=== PATIENT | male | born 1995 | race Caucasian/White ===

== ENCOUNTER 2021-11-01 13:13 | Inpatient (IN) | payer OTHER ==
[2021-11-01 13:55] VITALS: BMI 22.2
[2021-11-01] MEDS ORDERED: NICOTINE POLACRILEX 4 MG GUM BUC PRN (15:00)
[2021-11-01] MEDS ORDERED: BUPRENORPHINE HCL 150 MCG, BUPRENORPHINE HCL 75 MCG BC ONE (15:00)
[2021-11-01] MEDS ORDERED: ACETAMINOPHEN 325 MG TABLET (FP) PO PRN ×2 (15:00)
[2021-11-01] MEDS ORDERED: DICYCLOMINE HCL 10 MG CAPSULE PO PRN (15:00)
[2021-11-01] MEDS ORDERED: BISMUTH SUBSALICYLATE 524 MG/30 ML PO PRN (15:00)
[2021-11-01] MEDS ORDERED: BENZOCAINE/MENTHOL (CHLORASEPTIC ) LOZENGE MM PRN (15:00)
[2021-11-01] MEDS ORDERED: IBUPROFEN 400 MG TABLET (FP) PO PRN (15:00)
[2021-11-01] MEDS ORDERED: LOPERAMIDE HCL 2 MG CAPSULE PO PRN (15:00)
[2021-11-01] MEDS ORDERED: MAG HYDROX/AL HYDROX/SIMETH 30 ML UNIT-DOSE CUP PO PRN (15:00)
[2021-11-01] MEDS ORDERED: cloNIDine HCL 0.1 MG TABLET PO ONE (15:00)
[2021-11-01] MEDS ORDERED: ONDANSETRON *ODT* 4 MG TABLET SL PRN (15:00)
[2021-11-01] MEDS ORDERED: BUPRENORPHINE HCL 150 MCG, BUPRENORPHINE HCL 75 MCG BC PRN (15:00)
[2021-11-01] MEDS ORDERED: MAGNESIUM CITRATE 300 ML BOTTLE PO PRN (15:00)
[2021-11-01] MEDS ORDERED: IBUPROFEN 600 MG TABLET (FP) PO PRN (15:00)
[2021-11-01] MEDS ORDERED: MAGNESIUM HYDROX 2400MG/30ML ORAL SUSPENSION 30 ML CUP PO PRN (15:00)
[2021-11-01] MEDS ORDERED: BUPRENORPHINE HCL 150 MCG FILM BC ONE (15:35)
[2021-11-01] MEDS ORDERED: BUPRENORPHINE HCL 75 MCG FILM BC ONE (15:35)
[2021-11-01] MEDS: diazePAM 5 MG TABLET PO PRN (16:52)
[2021-11-01] MEDS: hydrOXYzine PAMOATE 25 MG CAPSULE (FP) PO PRN (16:53)
[2021-11-01] MEDS: NICOTINE 21 MG/24 HOURS TOPICAL PATCH TD SCH (16:56)
[2021-11-01] MEDS: LIDOCAINE 5% TOPICAL PATCH TP SCH (16:56)
[2021-11-01] MEDS: PRENATAL VITAMINS W/ FOLIC ACID TABLET (FP) PO SCH (16:57)
[2021-11-01] MEDS: BACITRACIN 15 GM TUBE TOPICAL OINTMENT TP SCH (18:22)
[2021-11-01] MEDS ORDERED: MELATONIN 5 MG TABLETS PO SCH (22:00)
[2021-11-01] MEDS: LIDOCAINE PATCH REMOVAL MC SCH (23:06)
[2021-11-01] MEDS: THIAMINE HCL 100 MG TABLET (FP) PO SCH (23:07)
[2021-11-02] MEDS ORDERED: BUPRENORPHINE HCL 150 MCG, BUPRENORPHINE HCL 75 MCG BC PRN
[2021-11-02] MEDS: BUPRENORPHINE HCL 150 MCG, BUPRENORPHINE HCL 75 MCG BC SCH ×2 (06:57→17:23)
[2021-11-02] MEDS: NICOTINE 10 MG CARTRIDGE (INHALER) IH PRN ×3 (07:50→17:40)
[2021-11-02] MEDS: diazePAM 5 MG TABLET PO PRN ×2 (10:07→17:37)
[2021-11-02] MEDS: PRENATAL VITAMINS W/ FOLIC ACID TABLET (FP) PO SCH (10:08)
[2021-11-02] MEDS: LIDOCAINE 5% TOPICAL PATCH TP SCH (10:08)
[2021-11-02] MEDS: BACITRACIN 15 GM TUBE TOPICAL OINTMENT TP SCH (10:08)
[2021-11-02] MEDS: NICOTINE 21 MG/24 HOURS TOPICAL PATCH TD SCH (10:08)
[2021-11-02] MEDS: LIDOCAINE PATCH REMOVAL MC SCH (22:58)
[2021-11-02] MEDS: MIRTAZAPINE 15 MG TABLET (FP) PO SCH (22:59)
[2021-11-02] MEDS: METHOCARBAMOL 500 MG TABLET PO PRN (23:00)
[2021-11-02] MEDS: THIAMINE HCL 100 MG TABLET (FP) PO SCH (23:00)
[2021-11-02] MEDS: MELATONIN 5 MG TABLETS PO PRN (23:01)
[2021-11-03] MEDS: BUPRENORPHINE HCL 450 MCG FILM BC SCH ×2 (05:23→17:54)
[2021-11-03] MEDS: diazePAM 5 MG TABLET PO PRN ×3 (05:26→14:55)
[2021-11-03] MEDS: LIDOCAINE 5% TOPICAL PATCH TP SCH (10:25)
[2021-11-03] MEDS: NICOTINE 21 MG/24 HOURS TOPICAL PATCH TD SCH (10:26)
[2021-11-03] MEDS: PRENATAL VITAMINS W/ FOLIC ACID TABLET (FP) PO SCH (10:26)
[2021-11-03] MEDS: BACITRACIN 15 GM TUBE TOPICAL OINTMENT TP SCH (10:29)
[2021-11-03 12:08] LABS: ALBUMIN 3.7 g/dl (3.4-5.0); CALCIUM 9.2 mg/dL (8.5-10.1)
[2021-11-03 12:09] LABS: BLOOD UREA NITROGEN 10.2 mg/dL (7-18); HEMATOCRIT 42.1 % (35.4-49); HEMOGLOBIN 14.1 GM/dL (11.7-16.9); MCH 28.5 pg (25.7-33.7); MCHC 33.4 g/dl (32.0-35.9); MEAN CELL VOLUME 85.4 fl (80-96); MEAN PLT VOLUME 9.5 fl (7.5-11.1); PLATELET COUNT 231 10^3/uL (134-434); RBC 4.93 M/mm3 (4.00-5.60); RDW 15.2 % (11.9-15.9); WHITE BLOOD COUNT 8.4 K/mm3 (4.0-10.0)
[2021-11-03 12:12] LABS: CREATININE 0.7 mg/dL (0.55-1.3)
[2021-11-03 12:13] LABS: BILIRUBIN,TOTAL 0.3 mg/dL (0.2-1); TOT PROT 6.9 g/dl (6.4-8.2)
[2021-11-03] MEDS: METHOCARBAMOL 500 MG TABLET PO PRN (17:53)
[2021-11-03] MEDS: cloNIDine HCL 0.1 MG TABLET PO PRN (17:53)
[2021-11-03] MEDS: THIAMINE HCL 100 MG TABLET (FP) PO SCH (22:27)
[2021-11-03] MEDS: MIRTAZAPINE 15 MG TABLET (FP) PO SCH (22:27)
[2021-11-03] MEDS: LIDOCAINE PATCH REMOVAL MC SCH (22:27)
[2021-11-04] MEDS: BUPRENORPHINE/NALOXONE 4 MG/1 MG FILM PACKET SL SCH ×2 (05:18→17:43)
[2021-11-04] MEDS: METHOCARBAMOL 500 MG TABLET PO PRN ×2 (05:20→22:04)
[2021-11-04] MEDS: NICOTINE 10 MG CARTRIDGE (INHALER) IH PRN ×2 (10:03→22:07)
[2021-11-04] MEDS: NICOTINE 21 MG/24 HOURS TOPICAL PATCH TD SCH (10:03)
[2021-11-04] MEDS: hydrOXYzine PAMOATE 25 MG CAPSULE (FP) PO PRN ×2 (10:06→22:04)
[2021-11-04] MEDS: PRENATAL VITAMINS W/ FOLIC ACID TABLET (FP) PO SCH (10:06)
[2021-11-04] MEDS: LIDOCAINE 5% TOPICAL PATCH TP SCH (10:09)
[2021-11-04] MEDS: BACITRACIN 15 GM TUBE TOPICAL OINTMENT TP SCH (10:09)
[2021-11-04] MEDS: cloNIDine HCL 0.1 MG TABLET PO PRN (17:42)
[2021-11-04] MEDS: LIDOCAINE PATCH REMOVAL MC SCH (22:02)
[2021-11-04] MEDS: THIAMINE HCL 100 MG TABLET (FP) PO SCH (22:05)
[2021-11-04] MEDS: MIRTAZAPINE 15 MG TABLET (FP) PO SCH (22:05)
[2021-11-04] MEDS: MELATONIN 5 MG TABLETS PO PRN (22:05)
[2021-11-05] MEDS: hydrOXYzine PAMOATE 25 MG CAPSULE (FP) PO PRN (05:49)
[2021-11-05] MEDS: METHOCARBAMOL 500 MG TABLET PO PRN (05:50)
[2021-11-05] MEDS ORDERED: BUPRENORPHINE/NALOXONE 8 MG/2 MG FILM PACKET SL ONE (06:00)
[2021-11-05 06:01] VITALS: PULSE 71
[2021-11-05] MEDS: LIDOCAINE 5% TOPICAL PATCH TP SCH (09:09)
[2021-11-05] MEDS: PRENATAL VITAMINS W/ FOLIC ACID TABLET (FP) PO SCH (09:10)
[2021-11-05] MEDS: BACITRACIN 15 GM TUBE TOPICAL OINTMENT TP SCH (09:10)
[2021-11-05] MEDS: NICOTINE 21 MG/24 HOURS TOPICAL PATCH TD SCH (09:10)
[2021-11-05 09:14] VITALS: BP 110/57; RESP 18; TEMP 97.3
== END 2021-11-05 10:16 | disposition other institution (70) | DRG 773 ==
LOC: YASAS 13:13 → Y3N 15:13
PROVIDERS: ADMIT Allergy & Immunology; ATTEND Family Medicine Addiction Medicine
PROC: HZ2ZZZZ Detoxification Services for Substance Abuse Treatment (ICD-10-PCS; principal; 2021-11-01)
DX: F11.23 Opioid dependence with withdrawal (principal); F10.10 Alcohol abuse, uncomplicated; F14.20 Cocaine dependence, uncomplicated; F16.10 Hallucinogen abuse, uncomplicated; F12.20 Cannabis dependence, uncomplicated; F17.210 Nicotine dependence, cigarettes, uncomplicated; F19.282 Other psychoactive substance dependence with psychoactive substance-induced sleep disorder; F41.9 Anxiety disorder, unspecified; F90.9 Attention-deficit hyperactivity disorder, unspecified type; Z62.810 Personal history of physical and sexual abuse in childhood; S80.211A Abrasion, right knee, initial encounter; S80.212A Abrasion, left knee, initial encounter; S29.9XXA Unspecified injury of thorax, initial encounter; V00.148A Other scooter (nonmotorized) accident, initial encounter; Y92.9 Unspecified place or not applicable; Y99.9 Unspecified external cause status; Z86.59 Personal history of other mental and behavioral disorders
CPT/HCPCS: 36415; 80053; 85027; 86780; 87811; C9803-CS; U0003; U0005

== ENCOUNTER 2022-03-01 12:29 | Emergency (ER) | payer OTHER ==
[2022-03-01 12:34] VITALS: RESP 18; TEMP 98.4; BMI 25.0
[2022-03-01] MEDS ORDERED: VANCOMYCIN 1 GM in D5W (PRE-DOCKED) 1,000 MG/250 ML IVPB ONE (14:26)
[2022-03-01] MEDS ORDERED: CEFEPIME HCL/D5W 1 GM/50 ML BAG IVPB ONE (14:32)
[2022-03-01] MEDS ORDERED: SODIUM CHLORIDE 1,000 ML IV STA (14:54)
[2022-03-01] MEDS ORDERED: ACETAMINOPHEN 1000 MG/100 ML BAG IVPB ONE (15:10)
[2022-03-01] MEDS ORDERED: ACETAMINOPHEN INJECTION 100 ML IVPB ONE (15:10)
[2022-03-01 16:15] LABS: BASO % 0.5 % (0-2.0); EOS % 1.1 % (0-4.5); HEMOGLOBIN 13.4 GM/dL (11.7-16.9); LYMPH % 8.5 % (8-40); MCH 27.5 pg (25.7-33.7); MCHC 33.5 g/dl (32.0-35.9); MEAN CELL VOLUME 82.2 fl (80-96); MEAN PLT VOLUME 9.2 fl (7.5-11.1); MONO % 6.6 % (3.8-10.2); NEUT % 83.3 % (42.8-82.8); PLATELET COUNT 224 10^3/uL (134-434); RBC 4.87 M/mm3 (4.00-5.60); RDW 13.8 % (11.9-15.9); WHITE BLOOD COUNT 14.3 K/mm3 (4.0-10.0)
[2022-03-01 16:20] LABS: INR 1.2 (0.83-1.09); PROTHROMBIN TIME (PATIENT) 13.8 SEC (9.7-13.0)
[2022-03-01 16:23] LABS: ACTIVATED PTT 32.3 SECONDS (25.2-36.5)
[2022-03-01 16:32] LABS: CALCIUM 9.4 mg/dL (8.5-10.1)
[2022-03-01 16:33] LABS: ALBUMIN 4.3 g/dl (3.4-5.0); BLOOD UREA NITROGEN 8.1 mg/dL (7-18)
[2022-03-01 16:36] LABS: CREATININE 0.7 mg/dL (0.55-1.3)
[2022-03-01 16:37] LABS: BILIRUBIN,TOTAL 0.7 mg/dL (0.2-1)
[2022-03-01 16:38] LABS: TOT PROT 7.7 g/dl (6.4-8.2)
[2022-03-01 17:21] LABS: ERYTHROCYTE SEDIMENTATION RATE 16 mm/hr (0-10)
[2022-03-01] MEDS ORDERED: DALBAVANCIN HCL 1,500 MG in DEXTROSE 5%-WATER - 500 ML IVPB ONE (18:06)
[2022-03-01] MEDS ORDERED: DALBAVANCIN HCL 500 MG VIAL (RESTRICTED TO ID ONLY) IVPB ONE (19:34)
[2022-03-01] MEDS ORDERED: CEFEPIME 1 GM/100 ML BAG IVPB ONE (19:35)
[2022-03-01] MEDS ORDERED: KETOROLAC TROMETHAMINE 30 MG/1 ML VIAL IM ONE (22:38)
[2022-03-01] MEDS ORDERED: KETOROLAC TROMETHAMINE 30 MG/1 ML VIAL ONE (22:40)
[2022-03-01 22:53] VITALS: BP 132/80; PULSE 90
== END 2022-03-01 22:53 | disposition left against medical advice (07) ==
LOC: JER 12:29
PROC: 3E0333Z Introduction of Anti-inflammatory into Peripheral Vein, Percutaneous Approach (ICD-10-PCS; principal; 2022-03-01)
PROC: 3E03329 Introduction of Other Anti-infective into Peripheral Vein, Percutaneous Approach (ICD-10-PCS; 2022-03-01)
PROC: 3E03329 Introduction of Other Anti-infective into Peripheral Vein, Percutaneous Approach (ICD-10-PCS; 2022-03-01)
PROC: 3E03329 Introduction of Other Anti-infective into Peripheral Vein, Percutaneous Approach (ICD-10-PCS; 2022-03-01)
PROC: 3E0337Z Introduction of Electrolytic and Water Balance Substance into Peripheral Vein, Percutaneous Approach (ICD-10-PCS; 2022-03-01)
PROC: 3E02329 Introduction of Other Anti-infective into Muscle, Percutaneous Approach (ICD-10-PCS; 2022-03-01)
DX: S93.302A Unspecified subluxation of left foot, initial encounter (principal); L03.116 Cellulitis of left lower limb; S06.9X9A Unspecified intracranial injury with loss of consciousness of unspecified duration, initial encounter; V03.00XA Pedestrian on foot injured in collision with car, pick-up truck or van in nontraffic accident, initial encounter
CPT/HCPCS: 0241U-QW; 36415; 73610-TC-LT-FY; 73630-TC-LT; 80053; 85025; 85610; 85651; 85730; 86140; 86850; 86900; 86901; 87040; 99284-25; J0875